=== PATIENT | female | born 1970 | race Two or more races ===

== ENCOUNTER 2023-06-19 11:30 | Emergency (ER) | payer OTHER ==
[~2023-06-19] VITALS: Ht 157.5 cm; Wt 87.3 kg
[2023-06-19 11:50] VITALS: BP 145/67; PULSE 91; RESP 18; O2SAT 96
[2023-06-19] MEDS: InsuLIN REG 1unit/0.01ml Soln (100units/ml) SC ONE (12:30)
[2023-06-19 12:51] LABS: Basophils # (auto) 0.1 10 ^3/uL (0-0.2); Eosinophils # (auto) 0.1 10 ^3/uL (0-0.8); Eosinophils % (auto) 1.6 % (0.0-7.0); Hemoglobin 11.8 g/dL (12.2-16.2); Monocytes # (auto) 0.3 10 ^3/uL (0-1.3); Red Cell Distribution Width 14.1 % (11.8-14.3)
[2023-06-19 12:53] LABS: Hematocrit 35.3 % (36.0-46.0); Lymphocytes % (auto) 28.6 % (10.0-50.0); Mean Corpuscular Hemoglobin 25.7 pg (28.0-32.0); Mean Corpuscular Hgb Conc. 33.5 g/dL (32.0-36.0); Mean Corpuscular Volume 76.7 fL (80.0-100.0); Monocytes % (auto) 4.6 % (0.0-12.0); Neutrophils # (auto) 4.4 10 ^3/uL (1.6-8.6); Neutrophils % (auto) 64.2 % (37.0-80.0); White Blood Cell 6.9 10^3/uL (4.4-10.8)
[2023-06-19 13:12] LABS: Urine Bacteria FEW /hpf (None Seen); Urine Blood Negative /uL (Negative); Urine Clarity HAZY (Clear); Urine Color Colorless (Yellow); Urine Mucus FEW (None Seen); Urine Protein, UAD Negative (Negative); Urine Specific Gravity 1.013 (1.001-1.035); Urine Urobilinogen Normal (Negative); Urine WBC 21 /hpf (0 - 5); Urine pH 5.5 (5.0-8.0)
[2023-06-19 13:31] LABS: Alanine Aminotransferase 16 U/L (7-40); Albumin 4.4 g/dL (3.2-4.8); Alkaline Phosphatase 119 U/L (46-116); Anion Gap 6 (5-15); Aspartate Aminotransferase 18 U/L (13-40); BUN/Creatinine Ratio 9.6 (10.0-20.0); Bilirubin, Total 0.4 mg/dL (0.2-1.0); Blood Urea Nitrogen 11 mg/dL (9-23); Calcium 9.5 mg/dL (8.5-10.1); Carbon Dioxide 26 mmol/L (20-30); Chloride 106 mmol/L (98-107); Potassium 4.2 mmol/L (3.5-5.1); Sodium 138 mmol/L (136-145); Total Protein 7.3 g/dL (5.7-8.2)
[2023-06-19] MEDS ORDERED: LISI2.5T47 PO (13:40)
[2023-06-19] MEDS ORDERED: LEVE500T40 PO (13:40)
[2023-06-19] MEDS ORDERED: INSU1INJ3 SC (13:40)
[2023-06-19] MEDS ORDERED: LEVO750T8 PO (13:41)
[2023-06-19 13:42] LABS: Glucose 426 mg/dL (74-106)
[2023-06-19] MEDS ORDERED: InsuLIN REG 1unit/0.01ml Soln (100units/ml) SC ONE (13:45)
== END 2023-06-19 14:47 | disposition home or self-care (01) ==
LOC: ER 11:30
DX: E11.65 Type 2 diabetes mellitus with hyperglycemia (principal); N39.0 Urinary tract infection, site not specified; Z91.148 Patient's other noncompliance with medication regimen for other reason; Z86.73 Personal history of transient ischemic attack (TIA), and cerebral infarction without residual deficits; Z79.899 Other long term (current) drug therapy
CPT/HCPCS: 36415; 80053; 81001; 82010; 82962; 85025; 96372; 99283; J1815

== ENCOUNTER 2023-12-11 08:18 | Inpatient (IN) | payer OTHER ==
[~2023-12-11] VITALS: Ht 152.4 cm; Wt 90.7 kg
[~2023-12-11 08:18] MED LIST: INSU1INJ3 SC; LEVE500T40 PO; LEVO750T8 PO; LISI2.5T47 PO
[2023-12-11 09:00] VITALS: PULSE 81; RESP 20; O2SAT 95
[2023-12-11 09:37] LABS: Basophils # (auto) 0.1 10 ^3/uL (0-0.2); Eosinophils # (auto) 0.1 10 ^3/uL (0-0.8); Eosinophils % (auto) 1.6 % (0.0-7.0); Hemoglobin 11.9 g/dL (12.2-16.2); Lymphocytes # (auto) 2.2 10 ^3/uL (0.4-5.4); Neutrophils # (auto) 5.4 10 ^3/uL (1.6-8.6); White Blood Cell 8.2 10^3/uL (4.4-10.8)
[2023-12-11 09:39] LABS: Basophils % (auto) 0.9 % (0.0-2.0); Hematocrit 34.9 % (36.0-46.0); Lymphocytes % (auto) 26.7 % (10.0-50.0); Mean Corpuscular Hemoglobin 25.4 pg (28.0-32.0); Mean Corpuscular Volume 74.5 fL (80.0-100.0); Monocytes # (auto) 0.4 10 ^3/uL (0-1.3); Monocytes % (auto) 5.2 % (0.0-12.0); Neutrophils % (auto) 65.6 % (37.0-80.0); Nucleated Red Blood Cells % 0.2 %; Red Blood Cells 4.68 10^6/uL (4.0-5.20); Red Cell Distribution Width 14.9 % (11.8-14.3)
[2023-12-11 09:56] LABS: Alanine Aminotransferase 17 U/L (7-40); Albumin 4.1 g/dL (3.2-4.8); Alkaline Phosphatase 167 U/L (46-116); Anion Gap 8 (5-15); Aspartate Aminotransferase < 8 U/L (13-40); BUN/Creatinine Ratio 12.2 (10.0-20.0); Blood Urea Nitrogen 14 mg/dL (9-23); Calcium 9.4 mg/dL (8.7-10.4); Carbon Dioxide 25 mmol/L (20-30); Chloride 103 mmol/L (98-107); Potassium 3.9 mmol/L (3.5-5.1); Sodium 136 mmol/L (136-145)
[2023-12-11 09:57] LABS: Bilirubin, Total 0.5 mg/dL (0.2-1.0); Total Protein 6.7 g/dL (5.7-8.2)
[2023-12-11 10:17] LABS: Glucose 471 mg/dL (74-106)
[2023-12-11] MEDS ORDERED: HYDROcodone-ACET 5/325MG TAB PO PRN (11:15)
[2023-12-11] MEDS ORDERED: ONDANSETRON HCL 4 MG/2 ML VIAL IV PRN (11:15)
[2023-12-11] MEDS ORDERED: ACETAMINOPHEN 325 MG TAB PO PRN (11:15)
[2023-12-11] MEDS ORDERED: DEXTROSE (50%) 50ML SYRG IV PRN (11:15)
[2023-12-11] MEDS ORDERED: DOCUSATE SOD 100 MG CAP PO PRN (11:15)
[2023-12-11 11:26] LABS: Urine Bacteria FEW /hpf (None Seen); Urine Blood Negative /uL (Negative); Urine Budding Yeast FEW /hpf (None Seen); Urine Protein, UAD Negative (Negative); Urine Specific Gravity 1.016 (1.001-1.035); Urine Urobilinogen Normal (Negative); Urine WBC 41 /hpf (0 - 5)
[2023-12-11 11:35] LABS: Urine Clarity Cloudy (Clear); Urine Color Light-Yellow (Yellow)
[2023-12-11 12:00] VITALS: BP 138/83; PULSE 76; RESP 16; O2SAT 97
[2023-12-11] MEDS ORDERED: LACTATED RINGER'S 1,000 ML IV ONE (12:00)
[2023-12-11] MEDS ORDERED: InsuLIN REG 1unit/0.01ml Soln (100units/ml) IV ONE (12:00)
[2023-12-11] MEDS: ACCU-CHEK COMFORT CURVE STRIP VI SCH (12:34)
[2023-12-11] MEDS: InsuLIN REG 1unit/0.01ml Soln (100units/ml) SC SCH (12:34)
[2023-12-11] MEDS ORDERED: SODIUM CHLOR 0.9% PF (SALINE LOCK) 10ML VIAL/SYR IV SCH (14:00)
[2023-12-12] MEDS ORDERED: ENOXAPARIN SOD 40 MG/0.4 ML SYRINGE SC SCH (10:00)
== END 2023-12-11 12:44 | disposition left against medical advice (07) | DRG 639 ==
LOC: ER 08:18 → OVERFLOW 11:08
PROVIDERS: ADMIT Internal Medicine; ATTEND Internal Medicine
DX: E11.65 Type 2 diabetes mellitus with hyperglycemia (principal); I10 Essential (primary) hypertension; E78.5 Hyperlipidemia, unspecified; R56.9 Unspecified convulsions; Z79.4 Long term (current) use of insulin; Z79.899 Other long term (current) drug therapy; Z86.73 Personal history of transient ischemic attack (TIA), and cerebral infarction without residual deficits; Z91.148 Patient's other noncompliance with medication regimen for other reason
CPT/HCPCS: 36415; 70450; 71045; 80053; 81001; 82962; 83036; 84484; 85025; G0378; J1815